=== PATIENT | male | born 1945 | race Hispanic/Latino ===

== ENCOUNTER → 2017-11-28 | Outpatient (CLI) | payer OTHER ==
[~2017-11-28] MED LIST: AMLO2.5T PO; ASPI-1181 PO; CILO50TA PO; CLOP75TA32 PO; GLIP10TA9 PO; SIMV10TA6 PO; TAMS0.4C32 PO; THYR15TA9 PO; THYR30TA2 PO
== END | disposition home or self-care (01) ==
LOC: RAH 11:53
PROVIDERS: ATTEND Urology
DX: N20.0 Calculus of kidney (principal); K59.00 Constipation, unspecified
CPT/HCPCS: 74018

== ENCOUNTER 2017-12-20 06:05 | Day surgery (SDC) | payer OTHER ==
[2017-12-18 16:36] VITALS: BP 142/75
[2017-12-18 16:39] LABS: BASOPHILS % (AUTO) 0.9 % (0.0-5.0); EOSINOPHILS % (AUTO) 2.8 % (0.0-8.0); HEMATOCRIT 37.7 % (42-54); LYMPHOCYTES % (AUTO) 30.3 % (21.0-51.0); MEAN CORPUSCULAR HEMOGLOBIN 30.8 pg (27.0-33.0); MEAN CORPUSCULAR HGB CONC 34.7 g/dL (32.0-36.0); MEAN CORPUSCULAR VOLUME 88.6 fL (79-99); MONOCYTES % (AUTO) 9.4 % (3.0-13.0); NEUTROPHILS % (AUTO) 56.6 % (40.0-77.0); PLATELET COUNT (AUTO) 199 K/uL (130-400); RED BLOOD CELL COUNT(AUTO) 4.26 MIL/uL (4.50-6.20); RED CELL DISTRIBUTION WIDTH 14.2 % (11.0-15.5); WHITE BLOOD COUNT (AUTO) 7.1 K/uL (4.8-10.8)
[2017-12-18 16:49] LABS: POTASSIUM 4.3 mmol/L (3.5-5.1)
[2017-12-20] VITALS (15 sets, daily range): BP systolic 117–161; BP diastolic 58–85
[~2017-12-20] VITALS: Ht 179.1 cm; Wt 106.3 kg
[2017-12-20] MEDS: CEFTRIAXONE SODIUM 1 GM IVP SCH ×2 (06:00→08:02)
[2017-12-20] MEDS ORDERED: SODIUM CHLORIDE 0.9% 1000ML 1,000 ML IV ONE (06:42)
[2017-12-20] MEDS ORDERED: ONDANSETRON HCL 4 MG/2 ML VIAL ONE (08:00)
[2017-12-20] MEDS ORDERED: MIDAZOLAM HCL 1 MG/ML 2ML VIAL ONE (08:00)
[2017-12-20] MEDS ORDERED: GLYCOPYRROLATE 0.2 MG/ML 5 ML VIAL ONE (08:00)
[2017-12-20] MEDS ORDERED: DEXAMETHASONE SOD PHOSPHATE 10MG/ML 1ML VIAL ONE (08:00)
[2017-12-20] MEDS ORDERED: LIDOCAINE PF 2% 5ML ABBOJECT ONE (08:00)
[2017-12-20] MEDS ORDERED: FENTANYL CITRATE PF 50 MCG/1 ML 2ML VIAL ONE (08:01)
[2017-12-20] MEDS ORDERED: PROPOFOL 10 MG/ML 20ML VIAL IV ONE (08:01)
== END 2017-12-20 11:30 | disposition home or self-care (01) ==
LOC: DAH 06:05
PROVIDERS: ATTEND Urology
DX: N20.0 Calculus of kidney (principal); E11.9 Type 2 diabetes mellitus without complications; E03.8 Other specified hypothyroidism; I73.89 Other specified peripheral vascular diseases; E78.00 Pure hypercholesterolemia, unspecified; Z98.890 Other specified postprocedural states; Z79.82 Long term (current) use of aspirin; Z79.899 Other long term (current) drug therapy; Z88.8 Allergy status to other drugs, medicaments and biological substances; Z79.84 Long term (current) use of oral hypoglycemic drugs; Z79.01 Long term (current) use of anticoagulants
CPT/HCPCS: 50590; 36415; 80048; 82948 ×2; 85025; 93005; A4218; A4510; A4600; J0696; J1100; J2001; J2250; J2405; J2704; J3010; J3490; J7030

== ENCOUNTER → 2018-01-14 | Outpatient (CLI) | payer OTHER ==
[~2018-01-14] MED LIST changes: -ASPI-1181 PO; -CLOP75TA32 PO
== END ==
LOC: RAH 11:47
PROVIDERS: ATTEND Urology
DX: N20.0 Calculus of kidney (principal); Z90.49 Acquired absence of other specified parts of digestive tract
CPT/HCPCS: 74018

== ENCOUNTER 2019-01-14 07:56 | Emergency (ER) | payer OTHER ==
[~2019-01-14 07:56] MED LIST changes: -AMLO2.5T PO; +AMLO2.5T4 PO
[2019-01-14] MEDS ORDERED: HYDROCODONE/ACETAMINOPHEN 5/325 MG TAB ONE (08:48)
== END 2019-01-14 08:56 | disposition home or self-care (01) ==
LOC: EDH 07:56
DX: K11.20 Sialoadenitis, unspecified (principal); C76.0 Malignant neoplasm of head, face and neck; I88.9 Nonspecific lymphadenitis, unspecified; E11.9 Type 2 diabetes mellitus without complications; I10 Essential (primary) hypertension

== ENCOUNTER → 2019-03-27 | Outpatient (CLI) | payer OTHER | END | disposition home or self-care (01) | LOC: RAH 11:36 | PROVIDERS: ATTEND Internal Medicine | DX: K11.8 Other diseases of salivary glands (principal) | CPT/HCPCS: 76536 ==